=== PATIENT | female | born 1945 | race African-American/Black ===

== ENCOUNTER 2025-04-24 01:35 | Emergency (ER) | payer OTHER ==
[~2025-04-24] VITALS: Ht 167.6 cm; Wt 45.0 kg
[2025-04-24] MEDS: LEVETIRACETAM 500MG PREMIX 100 ML IV ONE (02:23)
[2025-04-24] MEDS: LABETALOL 5MG/ML 4ML INJ IV ONE ×2 (02:23→04:02)
[2025-04-24] MEDS ORDERED: HUMAN-LANS PROTHROMBIN CPLX (PCC) 500 UNITS VIAL IV ONE (02:30)
[2025-04-24] MEDS: TRANEXAMIC ACID 1,000MG/10ML IV ONE (02:39)
[2025-04-24] MEDS: HUMAN-LANS PROTHROMBIN CPLX (PCC) 500 UNITS VIAL IV NR (02:41)
[2025-04-24] MEDS: IOHEXOL-350 100 ML BOTTLE ONE (02:51)
[2025-04-24 03:20] LABS: CREATININE 0.8 mg/dL (0.6-1.0); UREA NITROGEN BLOOD 29 mg/dL (9-23)
[2025-04-24 03:21] LABS: PROTEIN TOTAL 5.7 g/dL (6.0-8.3)
[2025-04-24] MEDS: ETOMIDATE 2MG/ML 10ML VIAL IV ONE (03:21)
[2025-04-24 03:22] LABS: ASPARTATE AMINOTRANSFERASE 21 IU/L (<34); BILIRUBIN DIRECT 0.1 mg/dL (<=3.0); BILIRUBIN TOTAL 0.4 mg/dL (0.1-1.0)
[2025-04-24] MEDS: ROCURONIUM BROMIDE 10MG/ML VIAL 5ML IV ONE (03:22)
[2025-04-24 03:34] LABS: BASOPHILS % 0.3 % (0.0-2.0); EOSINOPHILS % 0.5 % (0.0-5.0); HEMATOCRIT. 28.4 % (36.0-48.0); HEMOGLOBIN. 9.3 g/dL (12.0-16.0); LYMPHOCYTES % 24.6 % (20.0-50.0); MEAN PLATELET VOLUME 9.2 fl (7.4-10.4); MONOCYTES % 5.0 % (2.0-8.0); NEUTROPHILS % 69.6 % (40.0-76.0); PLATELET 218 x1000/uL (130-400); RED BLOOD CELL COUNT 3.06 mill/uL (4.2-5.4); RED CELL DISTRIBUTION WIDTH 14.7 % (11.6-14.6)
[2025-04-24 03:45] VITALS: O2SAT 98
[2025-04-24] MEDS: PROPOFOL 10MG/ML 100ML 100 ML IV SCH (03:45)
[2025-04-24] MEDS: NICARDIPINE 40MG/200ML PREMIX 200 ML IV SCH (03:47)
[2025-04-24 03:53] LABS: INR 2.0
[2025-04-24 03:57] VITALS: PULSE 97; RESP 15; TEMP 36; O2SAT 100
[2025-04-24 04:02] VITALS: BP 199/85
== END 2025-04-24 04:13 | disposition short-term general hospital (02) ==
LOC: ER 01:52 → EDBEDREQ 02:40 → EDBEDREQSVC 02:42 → EDBEDREQTM 02:42 → EDBEDREQ 02:42 → ER 04:13 → CMPBEDREQ 10:51
DX: I60.9 Nontraumatic subarachnoid hemorrhage, unspecified (principal); E11.649 Type 2 diabetes mellitus with hypoglycemia without coma; E78.00 Pure hypercholesterolemia, unspecified; I10 Essential (primary) hypertension; R56.9 Unspecified convulsions; Z79.01 Long term (current) use of anticoagulants; Z85.00 Personal history of malignant neoplasm of unspecified digestive organ
CPT/HCPCS: 80076; 80048; 80320; 83605; 85025; 85610; 85730; 87040; 36415; 84145; 71045; 70496; 70498; 70450; 93005; 31500; 96365; 96375; 96376; 99291; Q9967; J1953; J3490 ×2; J2704; C9132; G0480